=== PATIENT | male | born 1945 | race Hispanic/Latino ===

== ENCOUNTER 2017-07-13 08:58 | Inpatient (IN) | payer MEDICARE ==
[~2017-07-13] VITALS: Ht 165.1 cm; Wt 81.6 kg
[2017-07-13 09:56] LABS: BASOPHILS # (AUTO) 0.1 (0.0-0.1); BASOPHILS % 0.3 % (0.0-1.0); HEMATOCRIT 39.8 % (38.2-49.6); HEMOGLOBIN 13.5 g/dL (14.0-18.0); LYMPHOCYTES # (AUTO) 0.7 (1.0-3.2); MEAN CORPUSCULAR HEMOGLOBIN 26.5 pg (28-32); MEAN CORPUSCULAR HGB CONC 33.9 g/dL (31-35); MONOCYTES # (AUTO) 0.9 (0.2-0.8); MONOCYTES % 4.2 % (4.4-11.3); NEUTROPHILS # (AUTO) 19.4 (2.1-6.9); NEUTROPHILS % 89.8 % (38.7-80.0); PLATELET COUNT 133 x10e3/uL (140-360); RED CELL DISTRIBUTION WIDTH 14.1 % (11.7-14.4)
[2017-07-13 10:36] LABS: BILIRUBIN,URINE NEGATIVE (NEGATIVE); KETONES,URINE NEGATIVE (NEGATIVE); LEUKOCYTE ESTERASE ,URINE 2+ (NEGATIVE); NITRITE,URINE NEGATIVE (NEGATIVE); URINE UROBILINOGEN 0.2 mg/dL (0.2 - 1)
[2017-07-13 10:42] LABS: ANION GAP 13.2 mmol/L (8-16); BLOOD UREA NITROGEN 15 mg/dL (7-26); BUN/CREATININE RATIO 16 (6-25); CARBON DIOXIDE 23 mmol/L (22-29); CHLORIDE 93 mmol/L (98-107); CREATININE, SERUM 0.96 mg/dL (0.72-1.25); EST GLOMERULAR FILTRATION RATE > 60 ML/MIN (60-); GLUCOSE 140 mg/dL (74-118); POTASSIUM 3.2 mmol/L (3.5-5.1); SODIUM 126 mmol/L (136-145)
[2017-07-13 10:45] LABS: PROTEIN,URINE DIPSTICK 1+ (NEGATIVE)
[2017-07-13 11:36] LABS: AMORPHOUS SEDIMENT,URINE FEW (FEW); BACTERIA,URINE RARE /HPF; CLARITY,URINE HAZY (CLEAR); COLOR,URINE YELLOW (YELLOW); EPITHELIAL CELLS,URINE RARE /LPF
[2017-07-13] MEDS ORDERED: LEVOFLOXACIN 500MG/D5W 100ML 100 ML IV STA (11:45)
[2017-07-13] MEDS ORDERED: SODIUM CHLORIDE 0.9% 1000ML 1,000 ML IV STA (11:45)
[2017-07-13] MEDS ORDERED: ONDANSETRON HCL INJ 2 MG/ML VIAL IV PRN (16:15)
[2017-07-13] MEDS: SODIUM CHLORIDE 0.9% 1000ML 1,000 ML IV SCH (16:20)
[2017-07-13] MEDS: HYDROMORPHONE 2MG/ML INJ IV PRN ×2 (16:21→21:09)
[2017-07-13] MEDS ORDERED: POTASSIUM CHLORIDE 20 MEQ TAB CR PO STA (17:57)
[2017-07-13] MEDS ORDERED: JANUVIA100 MG PO (18:23)
[2017-07-13] MEDS ORDERED: LISINOPRIL10 MG PO (18:23)
[2017-07-13] MEDS ORDERED: ATORVASTATIN CA20 MG PO (18:30)
[2017-07-13] MEDS ORDERED: LEVOTHYROXINE50 MCG PO (18:30)
[2017-07-13 20:13] VITALS: BP 151/89
[2017-07-13] MEDS: ACETAMINOPHEN 325 MG TAB PO PRN (20:13)
--- NOTE | 2017-07-13 22:02 | Diagnostic Imaging Report ---
EXAM: US RENAL RETROPERITONEAL COMP INDICATION: \S\MED COMPARISON: None TECHNIQUE: Transverse and longitudinal images of the kidneys and bladder were obtained. FINDINGS: Right Kidney: Length: 12.5 cm Appearance: Normal echogenicity. Collecting system: No hydronephrosis Stones: None Cyst/Mass: None Left Kidney: Length: 13.2 cm Appearance: Normal echogenicity. Collecting system: No hydronephrosis Stones: None Cyst/Mass: Inferior renal cyst, 1.6 x 2.0 x 1.7 cm Incidental hepatic steatosis. Bladder: Unremarkable in appearance. Prostate is enlarged, 6.5 x 5.4 x 5.7 cm. IMPRESSION: No hydronephrosis. Signed by: Dr Rose Pittman MD on 07/13/2017 9:58 PM
[2017-07-13 23:11] VITALS: BP 125/74
[2017-07-14] MEDS: SODIUM CHLORIDE 0.9% 1000ML 1,000 ML IV SCH ×2 (00:08→19:03)
[2017-07-14 05:31] VITALS: BP 138/82
[2017-07-14] MEDS: HYDROMORPHONE 2MG/ML INJ IV PRN (06:13)
[2017-07-14 06:23] LABS: BASOPHILS # (AUTO) 0.1 (0.0-0.1); BASOPHILS % 0.3 % (0.0-1.0); EOSINOPHILS % 0.1 % (0.0-6.0); HEMATOCRIT 38.9 % (38.2-49.6); HEMOGLOBIN 13.1 g/dL (14.0-18.0); LYMPHOCYTES # (AUTO) 0.8 (1.0-3.2); LYMPHOCYTES % 5.2 % (18.0-39.1); MEAN CORPUSCULAR HEMOGLOBIN 26.3 pg (28-32); MEAN CORPUSCULAR HGB CONC 33.7 g/dL (31-35); MEAN CORPUSCULAR VOLUME 78.1 fL (81-99); MONOCYTES # (AUTO) 1.4 (0.2-0.8); NEUTROPHILS # (AUTO) 12.8 (2.1-6.9); NEUTROPHILS % 83.3 % (38.7-80.0); PLATELET COUNT 163 x10e3/uL (140-360); RED BLOOD COUNT 4.98 x10e6/uL (4.3-5.7); RED CELL DISTRIBUTION WIDTH 14.6 % (11.7-14.4)
[2017-07-14 06:53] LABS: ANION GAP 9.9 mmol/L (8-16); BLOOD UREA NITROGEN 10 mg/dL (7-26); BUN/CREATININE RATIO 13 (6-25); CALCIUM 8.7 mg/dL (8.4-10.2); CARBON DIOXIDE 25 mmol/L (22-29); CHLORIDE 103 mmol/L (98-107); CREATININE, SERUM 0.78 mg/dL (0.72-1.25); EST GLOMERULAR FILTRATION RATE > 60 ML/MIN (60-); GLUCOSE 119 mg/dL (74-118); POTASSIUM 3.9 mmol/L (3.5-5.1); SODIUM 134 mmol/L (136-145)
[2017-07-14 07:58] VITALS: BP 152/87
[2017-07-14] MEDS ORDERED: DEXTROSE 50% SYRINGE 50 ML IV PRN (11:00)
[2017-07-14] MEDS: INSULIN LISPRO 100 UNIT/1 ML 3ML VIAL SQ SCH ×3 (11:30→20:34)
--- NOTE | 2017-07-14 11:54 | History and Physical ---
PCP: Dr. Edgar Rodrigez CHIEF COMPLAINT: Unable to urinate with urinary retention associated with possible prostate infection, urinary tract infection and dehydration. HISTORY: Patient is a 72-year-old male who came in with a few days of increasing abdominal distention, pelvic pain and found out that the patient has urinary retention. Tolentino catheter was placed and over 1000 mL of urine output. His WBC was 21.6. He had 3+ blood and 2+ leukocyte esterase associated with increasing pain. His temperature was 99.9. Patient was stable. Blood pressure is stable as well. The patient was admitted to the hospital for IV antibiotic treatment. His urine culture and blood culture is still pending. Patient also had imaging done, including a renal ultrasound showing that there was no hydronephrosis. The patient's prostate was enlarged at 6.5 x 5.4 x 5.7 cm. The patient is otherwise stable on antibiotics. PAST MEDICAL HISTORY: Enlarged prostate, hypertension, hypothyroidism, hyperlipidemia, diabetes, type 2. PAST SURGICAL HISTORY: Bilateral inguinal hernia repair. SOCIAL HISTORY: Patient does not smoke or use alcohol. No regular drugs. ALLERGIES: NO KNOWN ALLERGIES. HOME MEDICATIONS: Lipitor, levothyroxine, lisinopril, and Januvia. REVIEW OF SYSTEMS: Abdominal distention with pelvic pain, urinary retention. No neurological deficit. No neuromuscular deficit. PHYSICAL EXAMINATION VITAL SIGNS: Temperature is 99.9, blood pressure 140/89, pulse rate 95, respirations 18. GENERAL: The patient is not in acute distress. He is awake. HEENT: Normocephalic, atraumatic and anicteric. NECK: Supple grossly. PULMONARY: Diminished breath sounds. CARDIOVASCULAR: Regular rate and rhythm. ABDOMEN: Soft. : Tolentino catheter in place and no distention. EXTREMITIES: No cyanosis or edema. NEUROLOGIC: No focal deficit. LABORATORY: Chemistries: Sodium is 126, potassium 3.2, chloride 93, bicarb 23, BUN is 15, creatinine 0.9, glucose 140. WBC is 21.6, hemoglobin 13.5, hematocrit is 39.8, platelets is 133,000. Urinalysis with 2+ leukocyte esterase wbcs of 11-20, 1+ protein, and 3+ blood. IMAGING DONE: Renal ultrasound as mentioned with enlarged prostate. IMPRESSION 1. Complicated urinary tract infection associated with prostatitis and enlarged prostate. 2. Leukocytosis with low-grade temperature as above. 3. History of hypertension. 4. Hyperlipidemia. 5. Hypothyroid. 6. Diabetes, type 2. PLAN: Change the diet to a ADA diet. IV antibiotics. Continue with Tolentino care. Check the urine culture for bacteria. Will repeat the lab workup. The low sodium and chloride most likely secondary to urinary retention. There is no acute kidney failure, although the patient has an enlarged prostate with urinary retention. Patient is otherwise stable at this time. Continue with management. Job#: [id number] ABIEL
[2017-07-14] MEDS: LEVOFLOXACIN 500MG/D5W 100ML 100 ML IV SCH (12:34)
[2017-07-14] MEDS: HYDROCODONE/APAP 7.5MG-325MG 1 EA TAB PO PRN ×2 (13:55→20:34)
[2017-07-14 14:39] VITALS: BP 135/93
[2017-07-14 16:33] VITALS: BP 125/84
[2017-07-14] MEDS: SENNOSIDES 8.6 MG TAB PO SCH (16:39)
[2017-07-14 20:00] VITALS: BP 151/88
[2017-07-14] MEDS: ATORVASTATIN 20 MG TAB PO SCH (20:34)
[2017-07-15] VITALS: BP 129/70
[2017-07-15 04:00] VITALS: BP 148/89
[2017-07-15] MEDS: LEVOTHYROXINE SODIUM 25 MCG TABLET PO SCH (06:31)
[2017-07-15] MEDS: HYDROCODONE/APAP 7.5MG-325MG 1 EA TAB PO PRN (07:08)
[2017-07-15] MEDS: INSULIN LISPRO 100 UNIT/1 ML 3ML VIAL SQ SCH ×4 (07:30→20:24)
[2017-07-15 07:46] VITALS: BP 131/84
[2017-07-15] MEDS ORDERED: LISINOPRIL 10 MG TAB PO SCH (09:00)
[2017-07-15] MEDS ORDERED: LEVOTHYROXINE SODIUM 50 MCG TAB PO SCH (09:00)
[2017-07-15] MEDS: LISINOPRIL 20 MG TAB PO SCH (09:21)
[2017-07-15] MEDS: SENNOSIDES 8.6 MG TAB PO SCH ×2 (09:21→18:00)
[2017-07-15] MEDS: SITAGLIPTIN 100 MG TAB PO SCH (09:21)
[2017-07-15 11:53] VITALS: BP 137/96
[2017-07-15] MEDS: LEVOFLOXACIN 500MG/D5W 100ML 100 ML IV SCH (13:27)
[2017-07-15] MEDS: SODIUM CHLORIDE 0.9% 1000ML 1,000 ML IV SCH ×2 (15:03→21:15)
[2017-07-15] MEDS: ACETAMINOPHEN 325 MG TAB PO PRN ×2 (15:35→21:15)
[2017-07-15 16:11] VITALS: BP 125/77
[2017-07-15 20:00] VITALS: BP 137/79
[2017-07-15] MEDS: ATORVASTATIN 20 MG TAB PO SCH (20:22)
[2017-07-15] MEDS ORDERED: TAMSULOSIN HCL 0.4 MG CAP PO SCH (21:00)
[2017-07-16] VITALS: BP 128/58
[2017-07-16 04:00] VITALS: BP 141/80
[2017-07-16] MEDS: LEVOTHYROXINE SODIUM 25 MCG TABLET PO SCH (05:02)
[2017-07-16] MEDS: HYDROCODONE/APAP 7.5MG-325MG 1 EA TAB PO PRN (05:40)
[2017-07-16 07:02] LABS: BASOPHILS # (AUTO) 0.1 (0.0-0.1); EOSINOPHILS # (AUTO) 0.1 (0.0-0.4); EOSINOPHILS % 0.9 % (0.0-6.0); HEMATOCRIT 39.7 % (38.2-49.6); HEMOGLOBIN 13.3 g/dL (14.0-18.0); LYMPHOCYTES # (AUTO) 0.6 (1.0-3.2); MEAN CORPUSCULAR HEMOGLOBIN 25.9 pg (28-32); MEAN CORPUSCULAR HGB CONC 33.5 g/dL (31-35); MEAN CORPUSCULAR VOLUME 77.4 fL (81-99); NEUTROPHILS # (AUTO) 5.6 (2.1-6.9); NEUTROPHILS % 69.9 % (38.7-80.0); PLATELET COUNT 197 x10e3/uL (140-360); RED BLOOD COUNT 5.13 x10e6/uL (4.3-5.7); RED CELL DISTRIBUTION WIDTH 14.5 % (11.7-14.4)
[2017-07-16] MEDS: INSULIN LISPRO 100 UNIT/1 ML 3ML VIAL SQ SCH ×2 (07:30→11:30)
[2017-07-16 07:35] LABS: ANION GAP 12.4 mmol/L (8-16); BLOOD UREA NITROGEN 8 mg/dL (7-26); BUN/CREATININE RATIO 11 (6-25); CALCIUM 8.7 mg/dL (8.4-10.2); CARBON DIOXIDE 23 mmol/L (22-29); CHLORIDE 102 mmol/L (98-107); CREATININE, SERUM 0.74 mg/dL (0.72-1.25); EST GLOMERULAR FILTRATION RATE > 60 ML/MIN (60-); GLUCOSE 125 mg/dL (74-118); POTASSIUM 3.4 mmol/L (3.5-5.1); SODIUM 134 mmol/L (136-145)
[2017-07-16 08:26] VITALS: BP 127/74
[2017-07-16] MEDS: SITAGLIPTIN 100 MG TAB PO SCH (08:48)
[2017-07-16] MEDS: LISINOPRIL 20 MG TAB PO SCH (08:49)
[2017-07-16] MEDS: SENNOSIDES 8.6 MG TAB PO SCH (08:49)
[2017-07-16 11:02] LABS: BAND NEUTROPHILS % (MANUAL) 24 %; EOSINOPHILS % (MANUAL) 2 % (0-7); LYMPHOCYTES % (MANUAL) 16 % (19-48); MONOCYTES % (MANUAL) 12 % (3.4-9.0); NEUTROPHILS % (MANUAL) 46 % (40-74); PLATELET ESTIMATE ADEQUATE; PLATELET MORPHOLOGY COMMENT NORMAL; RBC MORPHOLOGY COMMENT NORMAL
[2017-07-16 12:14] VITALS: BP 116/65
[2017-07-16] MEDS: LEVOFLOXACIN 500MG/D5W 100ML 100 ML IV SCH (12:30)
[2017-07-16] MEDS: ACETAMINOPHEN 325 MG TAB PO PRN (13:00)
[2017-07-16 16:15] VITALS: BP 139/84
[2017-07-16] MEDS ORDERED: FLOMAX0.4 MG PO (16:41)
[2017-07-16] MEDS ORDERED: LEVAQUIN500 MG PO (16:41)
[2017-07-16] MEDS ORDERED: bacid PO (16:42)
--- NOTE | 2017-07-17 02:06 | Discharge Summary ---
CONSULTANTS: Dr. Abhinav Ward FINAL DIAGNOSES: 1. Complicated urinary tract infection associated with urinary bladder, retention, enlarged prostate. 2. Fever with leukocytosis of 21.6. 3. Baseline hypertension and diabetes. SUMMARY: Patient is a pleasant 72-year-old male basically came in because of unable to urinate. The patient was noted to have fever and leukocytosis. He has pain with urination. Patient basically with complicated urinary tract infection associated with prostatitis and enlarged prostate with increasing WBC and fever. The patient was given Levaquin IV. His leukocytosis now resolved. The patient will need to go home with a Tolentino catheter with a leg bag. He will continue with Levaquin for 7 days. Flomax initiated. Patient will resume his home medication. The patient is stable, will go home today. Follow up with Dr. Ward as planned. Job#: [id number]
== END 2017-07-16 17:30 | disposition home or self-care (01) | DRG 690 ==
LOC: ER 08:58 → ERHOLD 12:15 → IMCU 18:28
PROVIDERS: ADMIT Internal Medicine; ATTEND Internal Medicine
DX: N39.0 Urinary tract infection, site not specified (principal); E11.9 Type 2 diabetes mellitus without complications; E87.1 Hypo-osmolality and hyponatremia; N40.1 Benign prostatic hyperplasia with lower urinary tract symptoms; R33.8 Other retention of urine; I10 Essential (primary) hypertension; E86.0 Dehydration; E03.9 Hypothyroidism, unspecified; N41.9 Inflammatory disease of prostate, unspecified
CPT/HCPCS: 36415; 76770; 80048; 81001; 82948; 83605; 85025; 87040; 87086; 96360; 99284; J1956; J2405; J7030

== ENCOUNTER 2017-07-18 23:58 | Emergency (ER) | payer MEDICARE ==
[~2017-07-18] VITALS: Ht 165.1 cm; Wt 81.6 kg
[~2017-07-18 23:58] MED LIST: ATORVASTATIN CA20 MG PO; FLOMAX0.4 MG PO; JANUVIA100 MG PO; LEVAQUIN500 MG PO; LEVOTHYROXINE50 MCG PO; LISINOPRIL10 MG PO; bacid PO
[2017-07-19] MEDS ORDERED: LIDOCAINE HCL 2% JELLY 5 ML TUBE TOP ONE (05:00)
== END 2017-07-19 05:00 | disposition home or self-care (01) ==
LOC: ER 23:58
DX: T83.84XA Pain due to genitourinary prosthetic devices, implants and grafts, initial encounter (principal); I10 Essential (primary) hypertension; E11.9 Type 2 diabetes mellitus without complications; E03.9 Hypothyroidism, unspecified; E78.5 Hyperlipidemia, unspecified
CPT/HCPCS: 99282; J2001

== ENCOUNTER → 2019-09-17 | Day surgery (SDC) | payer OTHER ==
[~2019-09-17] MED LIST changes: +FENTANYL CITRATE/PF 100MCG/2 ML INJ ONE; +MIDAZOLAM HCL 2 MG/2 ML VIAL ONE; +OR PHACO EYE KIT ONE; +PREOP PHACO EYE KIT ONE
--- OUTSIDE RECORDS SUMMARY | 2019-09-17 10:57 | XMS REPORT ---
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 Allergies, Adverse Reactions, Alerts This patient has no known allergies or adverse reactions. Medications This patient has no known medications. Results Test Description Test Time Test Comments Text Results Atomic Results Result Comments US RENAL RETROPERITONEAL COMP [place] [address] Patient Name: QUINCY BOLANOS MR #: [id number] : 1945 Age/Sex: 72/M Req #: [id number] [facility] Physician: SWAPNA PALENCIA MD Ordered by: ANNE WAGONER MD Report #: [id number] Location: [facility] Room/Bed: [place] [address] Procedure: [id number] US/US RENAL RETROPERITONEAL COMP Exam Date: 07/13/17 Exam Time: 2028 REPORT STATUS: Signed EXAM: US RENAL RETROPERITONEAL COMP INDICATION: COMPARISON: None TECHNIQUE: Transverse and longitudinal images of the kidneys and bladder were obtained. FINDINGS: Right Kidney: Length: 12.5 cm Appearance: Normal echogenicity. Collecting system: No hydronephrosis Stones: None Cyst/Mass: None Left Kidney: Length: 13.2 cm Appearance: Normal echogenicity. Collecting system: No hydronephrosis Stones: None Cyst/Mass: Inferior renal cyst, 1.6 x 2.0 x 1.7 cm Incidental hepatic steatosis. Bladder: Unremarkable in appearance. Prostate is enlarged, 6.5 x 5.4 x 5.7 cm. IMPRESSION: No hydronephrosis. Signed by: Dr Sebastien Pittman MD on 07/13/2017 9:58 PM Dictated By: SEBASTIEN PITTMAN MD 59 Transcribed By: BAILEY on 07/13/172157 COPY TO: ANNE WAGONER MD
[2019-09-17 14:00] VITALS: BP 149/90
== END | disposition home or self-care (01) ==
LOC: OR 10:52
PROVIDERS: ATTEND Ophthalmology
DX: H25.12 Age-related nuclear cataract, left eye (principal); E11.9 Type 2 diabetes mellitus without complications; I10 Essential (primary) hypertension; R06.02 Shortness of breath; Z79.84 Long term (current) use of oral hypoglycemic drugs
CPT/HCPCS: 36415; 82948; J2250; J3010

== ENCOUNTER → 2019-12-12 | Day surgery (SDC) | payer OTHER ==
[2019-12-07 14:12] LABS: BASOPHILS # (AUTO) 0.1 (0.0-0.1); BASOPHILS % 0.5 % (0.0-1.0); EOSINOPHILS # (AUTO) 0.1 (0.0-0.4); EOSINOPHILS % 0.6 % (0.0-6.0); HEMATOCRIT 43.6 % (38.2-49.6); LYMPHOCYTES # (AUTO) 1.3 (1.0-3.2); MEAN CORPUSCULAR HEMOGLOBIN 25.9 pg (28-32); MEAN CORPUSCULAR HGB CONC 32.1 g/dL (31-35); MEAN CORPUSCULAR VOLUME 80.6 fL (81-99); MONOCYTES # (AUTO) 0.9 (0.2-0.8); MONOCYTES % 8.9 % (4.4-11.3); NEUTROPHILS # (AUTO) 7.3 (2.1-6.9); NEUTROPHILS % 75.6 % (38.7-80.0); PLATELET COUNT 215 x10e3/uL (140-360); RED BLOOD COUNT 5.41 x10e6/uL (4.3-5.7); RED CELL DISTRIBUTION WIDTH 14.3 % (11.7-14.4)
[~2019-12-12] MED LIST changes: +CHONDR SU A NA/HYALUR SOD 1 EACH KIT IO ONE; +EPINEPHRINE HCL 1:1000 1ML 1 MG/ML AMP ONE; -FENTANYL CITRATE/PF 100MCG/2 ML INJ ONE; -MIDAZOLAM HCL 2 MG/2 ML VIAL ONE
[2019-12-12 13:08] VITALS: BP 115/81
== END | disposition home or self-care (01) ==
LOC: OR 12-07 12:41
PROVIDERS: ATTEND Ophthalmology
DX: H25.11 Age-related nuclear cataract, right eye (principal); I10 Essential (primary) hypertension; E11.9 Type 2 diabetes mellitus without complications; Z01.810 Encounter for preprocedural cardiovascular examination; Z01.812 Encounter for preprocedural laboratory examination; Z11.59 Encounter for screening for other viral diseases
CPT/HCPCS: 36415 ×2; 66984; 82948; 85025; 87635; 93005; V2632; J0171